=== PATIENT | female | born 1935 | race Caucasian/White ===

== ENCOUNTER 2019-03-02 07:10 | Inpatient (IN) ==
--- NOTE | 2019-02-04 15:41 | PAT Medication Instructions ---
Medication Instructions Date of Service February 04, 2019 Home Medications amlodipine 5 mg PO QDL 08/05/18 [History Confirmed 02/02/19] atenolol 25 mg PO HS 08/05/18 [History Confirmed 02/02/19] cholecalciferol (vitamin D3) [Vitamin D3] 2 cap PO QAM 08/05/18 [History Confirmed 02/02/19] levothyroxine 100 mcg PO QAM 08/05/18 [History Confirmed 02/02/19] multivitamin 1 cap PO QAM 08/05/18 [History Confirmed 02/02/19] omeprazole 20 mg PO QAM PRN 08/05/18 [History Confirmed 02/02/19] warfarin 5 mg PO DAILY 08/05/18 [History Confirmed 02/02/19] gabapentin 600 mg PO BID 02/02/19 [History Confirmed 02/02/19] ASK your prescriber and surgeon warfarin 5 mg PO DAILY 08/05/18 [History Confirmed 02/02/19] DO NOT take the morning of surgery cholecalciferol (vitamin D3) [Vitamin D3] 2 cap PO QAM 08/05/18 [History Confirmed 02/02/19] multivitamin 1 cap PO QAM 08/05/18 [History Confirmed 02/02/19] Take morning of surgery With a small sip of water, OTHERWISE NOTHING TO EAT OR DRINK AFTER MIDNIGHT: amlodipine 5 mg PO QDL 08/05/18 [History Confirmed 02/02/19] levothyroxine 100 mcg PO QAM 08/05/18 [History Confirmed 02/02/19] omeprazole 20 mg PO QAM PRN (if needed) gabapentin 600 mg PO BID 02/02/19 [History Confirmed 02/02/19] Take evening before surgery atenolol 25 mg PO HS 08/05/18 [History Confirmed 02/02/19] gabapentin 600 mg PO BID 02/02/19 [History Confirmed 02/02/19] Other Notes If you have any questions please call us at [phone] or [phone] or [phone] or [phone]
--- NOTE | 2019-02-05 09:41 | Anesthesiology Consultation ---
Date of Service February 05, 2019 Assessment & Plan (1) Encounter for pre-operative examination: - Awaiting review preop testing (labs, CXR). - Cardiology: 01/30/19: "may proceed with surgery as planned, cardiac risk low, RCRI score less than 0.5%." Awaiting response from cardiology (Magen Curtis, JUMA/VALENTIN) regarding pacer information to determine if pacer rep needed for surgery. - Check coags AM DOS Chart Review Chart Review: Patient seen in Pre Admission Testing Teaching & Discussion Pre-Anesthesia Teaching/Discussion Notes: Instructed NPO after midnight before surgery,except medications with 15 cc of water. Medication instructions provided according to the PAT guidelines. History Surgery Operation Date: 03/02/19 07:30 Proposed Procedures p L4-L5, L5-S1 Laminectomy and Fusion - Luis Ramirez DO Height/Weight Height: 5 ft 1 in Weight: 62.9 kg Allergies Allergy/AdvReac Type Severity Reaction Status Date / Time apixaban [From Eliquis] Allergy hives Verified 02/05/19 10:15 rivaroxaban [From Xarelto] AdvReac Severe flu-like Verified 02/05/19 10:15 symptoms alendronate sodium AdvReac Unknown N/V Verified 02/05/19 10:15 Vgutlwf-Bfs-Dry Reductase AdvReac Unknown muscle Verified 02/05/19 10:15 Inhibitor deterioration Medications Home Medications Medication Instructions Recorded Confirmed Last Taken amlodipine 5 mg PO QDL 08/05/18 02/02/19 08/11/18 atenolol 25 mg PO HS 08/05/18 02/02/19 08/11/18 22:00 cholecalciferol (vitamin D3) 2 cap PO QAM 08/05/18 02/02/19 08/10/18 [Vitamin D3] levothyroxine 100 mcg PO QAM 08/05/18 02/02/19 08/12/18 06:30 multivitamin 1 cap PO QAM 08/05/18 02/02/19 Unknown omeprazole 20 mg PO QAM PRN 08/05/18 02/02/19 Unknown warfarin 5 mg PO DAILY 08/05/18 02/02/19 08/06/18 gabapentin 600 mg PO BID 02/02/19 02/02/19 Unknown Past Medical History Medical History Atrial fibrillation Chronic back pain GERD (gastroesophageal reflux disease) controlled History of basal cell carcinoma s/p excision (face) Hypertension Hypothyroidism 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) Spinal stenosis Exercise / Class Metabolic Activity III < 4 Walking/Shop/Light housework Past Surgical History Surgical History History of appendectomy History of arthroscopy BOTH KNEE History of bunionectomy of both great toes History of cataract surgery B/L History of esophagogastroduodenoscopy (EGD) + dilation History of gastric surgery ?esophageal sphincter repair History of hysterectomy TOTAL History of laparoscopy extensive abdominal surgery to repair esophagus (?esophageal sphincter) 1993 History of tonsillectomy Pacemaker Past Anesthesia History No Hx of Anesthesia Complications and No Family Hx of Anesthesia Complications History of PONV No Hx of PONV and No Hx of Motion Sickness Social History Smoking Status: Former smoker tobacco type: cigarettes Do You Dip or Chew Tobacco: No Smoking End Date: Quit 1982 Hx Alcohol Use: No Hx Substance Use: No substance use type: does not use Review of Systems Reflux controlled. Patient denies chest pain, shortness of breath, cough, wheezing, palpitations. Physical Exam Vital Signs VITALS BP 152/75 P 59 TEMP 97.6 SP02 98%RA RESP 16 PHYSICAL Full neck and c-spine range of motion. Full TMJ range of motion. TMD 3 finger breaths Mallampati Score 3 Dentition: intact, implants on molars Lungs: clear throughout to auscultation Cardiac: regular rate and rhythm, no murmurs noted Spine: normal Carotid arteries: negative bruit Extremities: no edema Testing Electrocardiogram Date: 01/30/19 Atrial paced rhythm at 60bpm. Echocardiogram Date: 01/03/16 LVEF 55-60%. Mild AR. Moderate AV sclerosis. Technically difficult study. Grade I DD. Other Testing Pacer check: 01/30/19 (report in cardiology office visit note): [employer]. NA: 6 years estimated longevity. [place] 5.7% longest AF event over 40 hours in September, last AF event 01/10/19. Pacemaker mode/rate: AAI<=>DDD 60 - 120 bpm. No pacer dependence noted. "Normal pacemaker evaluation.. PAF.. Adequate pacing and sensing thresholds"
--- NOTE | 2019-02-05 10:16 | XRay Report ---
XR chest Pre-admission PA/Lat CLINICAL HISTORY: Preoperative evaluation. COMPARISON STUDY: No previous studies for comparison. FINDINGS: Lung volumes are normal. Lungs are clear. There is no pneumothorax or pleural effusion. Car diac size is normal. Mediastinal contours are normal. There is no evidence for pulmonary edema. Dual- lead left subclavian pacemaker is in place. There is slight blunting of the left costophrenic angle a nd slight elevation of the left hemidiaphragm. IMPRESSION: No acute cardiopulmonary findings. Electronically signed by: Ike Yadav M.D. 02/05/2019 10:14 AM
[2019-02-05 10:55] LABS: Basophils # (auto) 0.02 K/uL (0-0.2); Basophils % (auto) 0.3 %; Eosinophils % (auto) 1.7 %; Hematocrit (blood only) 37.4 % (37-47); Hemoglobin 12.6 g/dL (12.0-16.0); Immature Granulocytes # (auto) 0.01 K/uL (0.00-0.02); Immature Granulocytes % (auto) 0.2 %; Lymphocytes % (auto) 23.9 %; Mean Corpuscular Hemoglobin 31.5 pg (25-34); Mean Corpuscular Hgb Conc 33.7 g/dL (32-36); Mean Corpuscular Volume 93.5 fL (80-100); Mean Platelet Volume 10.3 fL (7.4-10.4); Monocytes # (auto) 0.43 K/uL (0.11-0.59); Monocytes % (auto) 7.3 %; Neutrophils # (auto) 3.91 K/uL (1.4-6.5); Neutrophils % (auto) 66.6 %; Platelet Count 283 K/uL (130-400); RDW Coefficient of Variation 13.5 % (11.5-14.5); RDW Standard Deviation 46.3 fL (36.4-46.3); White Blood Count 5.87 K/uL (4.8-10.8)
[2019-02-05 11:11] LABS: INR 1.5 (0.9-1.1); Partial Thromboplastin Ratio 1.4; Partial Thromboplastin Time 36.7 Seconds (21.0-31.0); Prothrombin Time 15.4 Seconds (9.0-12.0)
[2019-02-05 11:12] LABS: BUN Creatinine Ratio 15.4 (10-20); Creatinine Clr Calc Pharmacy 40.1 ml/min; Est GFR (African American) 67.2; Potassium 4.4 mmol/L (3.5-5.1)
--- NOTE | 2019-02-27 15:28 | History and Physical Report ---
DATE OF ADMISSION: 03/02/2019 CHIEF COMPLAINT: Back pain, lower extremity difficulty, inability to ambulate. HISTORY OF PRESENT ILLNESS: Nimisha is delightful. She is miserable, poorly functional, difficulty standing and walking. She has severe stenosis of the spine and a spondylolisthesis at L4-L5 and L5-S1. She is here for elective surgery on 03/02/2019. PAST MEDICAL HISTORY: Positive for heart disease, thyroid disease, high cholesterol. PAST SURGICAL HISTORY: Hysterectomy, cataracts, bunion, pacemaker. ALLERGIES: STATINS. SOCIAL HISTORY: She is . No alcohol, tobacco. REVIEW OF SYSTEMS: No fevers, sweats, chills. Ear, nose and throat negative. Denies chest pain. Does have some heart beat changes. No asthma, wheezing. No shortness of breath. No nausea, vomiting, bowel and bladder incontinence. PHYSICAL EXAMINATION: GENERAL: She is 5 feet 2 inches, 140. VITAL SIGNS: Blood pressure 130/80, pulse 80. HEENT: Pupils react to light and accommodation. Ear, nose and throat clear. CARDIAC: Normal S1, S2, no S3. LUNGS: Clear to auscultation. No rales, rhonchi, wheezing. ABDOMEN: Soft, nontender, bowel sounds present. NEUROLOGIC: She has weakness with dorsiflexion and plantarflexion, inability to stand, inability to ambulate. PLAN: Includes a laminectomy and fusion, L4-S1 lumbar spine.
[~2019-03-02 07:10] MED LIST: ACETAMINOPHEN 1,000 MG/100 ML VIAL IV SCH; ACETAMINOPHEN 1000 MG/100 ML IV IV SCH; CEFAZOLIN 2000MG 2,000 MG/15 ML SYR IV SCH; LR 15ML/HR IV SCH; SODIUM CHLORIDE 0.9% 1,000 ML IV SCH
[2019-03-02 08:20] LABS: INR 1.1 (0.9-1.1); Partial Thromboplastin Ratio 1.1; Partial Thromboplastin Time 28.9 Seconds (21.0-31.0); Prothrombin Time 10.8 Seconds (9.0-12.0)
[2019-03-02] MEDS ORDERED: ONDANSETRON INJ 2 MG/ML 2 ML VIAL ONE (08:30)
[2019-03-02] MEDS ORDERED: PROPOFOL IV EMULSION 10 MG/ML 20 ML VIAL IV ONE (08:30)
[2019-03-02] MEDS ORDERED: LIDOCAINE HCL 2% 2 ML VIAL/AMP(20MG/ML) INFIL ONE (08:30)
[2019-03-02] MEDS ORDERED: ePHEDrine sulfate 50 MG/ML SYR ONE (08:30)
[2019-03-02] MEDS ORDERED: MIDAZOLAM HCL 1 MG/ML 2ML VIAL ONE (08:30)
[2019-03-02] MEDS ORDERED: LARYING-O-JET KIT (LTA) ONE (08:30)
[2019-03-02] MEDS ORDERED: DEXAMETHASONE SOD INJ 4 MG/ML VIAL ONE (08:30)
[2019-03-02] MEDS ORDERED: NEOSTIGMINE METHYLSULFATE 5 MG/5 ML SYR ONE (08:30)
[2019-03-02] MEDS ORDERED: ROCURONIUM BROMIDE 10 MG/ML 5 ML VIAL ONE (08:30)
[2019-03-02] MEDS ORDERED: GLYCOPYRROLATE 0.2 MG/ML VIAL ONE (08:30)
[2019-03-02] MEDS ORDERED: fentaNYL citrate 100 MCG/2 ML VIAL ONE (08:31)
--- NOTE | 2019-03-02 09:51 | History & Physical Bridge Note ---
Date of Service March 02, 2019 History & Physical Bridge Note I have examined the patient, reviewed the History & Physical and in the interval since the performance of the History & Physical I have noted the following changes of clinical significance: no changes noted
[2019-03-02] MEDS ORDERED: EPINEPHrine INJ 1 MG/ML AMP ONE (09:53)
[2019-03-02] MEDS ORDERED: VANCOMYCIN HCL 1000MG/20ML VIAL ONE (09:53)
[2019-03-02] MEDS ORDERED: GELATIN SPONGE SZ 100 ONE (09:53)
[2019-03-02] MEDS ORDERED: BACITRACIN INJ 50,000 UNIT VIAL ONE (09:53)
[2019-03-02] MEDS ORDERED: THROMBIN FOR SOLN 20000 UNIT KIT ONE (09:53)
[2019-03-02] MEDS ORDERED: BUPIVACAINE 0.5 % 5 MG/1 ML MPF 30ML VIAL ONE (09:53)
[2019-03-02] MEDS ORDERED: HYDROmorphone INJ 2 MG/ML SYR/VIAL ONE (10:48)
--- NOTE | 2019-03-02 11:52 | Fluoroscopy Report ---
FL spine 1V any level CLINICAL HISTORY: L4-S1 LAMINECTOMY AND FUSION COMPARISON STUDY: Lumbar spine CT January 20, 2019. FLUOROSCOPY TIME: 5 seconds. FLUOROSCOPIC IMAGES: 1 FINDINGS: Single lateral fluoroscopic image demonstrates pedicle screws at the L4, L5 and S1 levels. IMPRESSION: Fluoroscopic image demonstrating pedicle screws at the L4, L5 and S1 levels. Electronically signed by: Ike Yadav M.D. 03/02/2019 11:51 AM
--- NOTE | 2019-03-02 12:02 | Post Operative Brief Note ---
PG Immediate Post Op with CF Date of Surgery March 02, 2019 Pre & Post Diagnosis Operation Date: 03/02/19 09:50 Pre-Op Diagnosis: Spinal Stenosis Post-Op Diagnosis: Spinal Stenosis I identified the patient and participated in the time-out.: Yes Procedure Operation Date: 03/02/19 09:50 Actual Procedures p L4-L5, L5-S1 Laminectomy and Fusion(Not Applicable) - Luis aRmirez DO Surgeon Luis Ramirez DO Mass Spec minor Estimated Blood Loss 100 Findings Consistent with Post-Op Diagnosis Specimens Specimen Description: none per surgeon Drains Andrews Catheter (16 indonesian 10ml balloon) and Hemovac Drain Complications none Overlapping Procedure I was immediately available: during the entire case.
--- NOTE | 2019-03-02 12:13 | Operative Report ---
PG Post Operative Report Pre & Post Diagnosis Operation Date: 03/02/19 09:50 Pre-Op Diagnosis: Spinal Stenosis Post-Op Diagnosis: Spinal Stenosis I identified the patient and participated in the time-out.: Yes Procedure Operation Date: 03/02/19 09:50 Actual Procedures p L4-L5, L5-S1 Laminectomy and Fusion(Not Applicable) - Luis Ramirez DO Surgeon Luis Ramirez DO Electrocardiographic Technician minor Estimated Blood Loss 100 Findings Consistent with Post-Op Diagnosis Specimens 0 Drains No specimens Complications none Disposition Accompanied Patient To Recovery: Yes Indications Inability to stand walk and ambulate distances. Description of Procedure Patient was taken to the operating room a general intubated anesthetic provided the patient Andrews catheter administered. Placed prone on the Julian table. We prepped her Rescriptor draped your sterile took a timeout. Made a skin incision from L3 down to the sacrum dissecting the soft tissue out over the facet joints transverse processes sacrum putting in a deep self-retaining retractor We then decompress the neural elements starting at L5-S1 L4-5 took off the lamina 5145 a true 2 level laminectomy. We did partial facetectomy decompressing each and every nerve root in the vicinity. We then instrumented the spine she had a grade 1 spondylolisthesis of fell she was unstable she had significant osteoporotic bone. There is also very poor facet joints I felt she was a moderate set up for significant instability and iatrogenic instability. We safely got pedicle screws into 4 5 and sacrum on the left and 4 5 sacrum on the right. We used anatomic landmarks we used C-arm guidance I felt the positioning was excellent. We then put in the clare reduce the spinal thesis tightened down the bolts. We irrigated thoroughly with approximately 500 cc of fluid bone grafted out of the transverse processes and sacral ala with a combination of morselized autograft and demineralized bone matrix. Then began our closure room vancomycin powder with 1 Vicryl suture. 201 subcuticular layer staple gun and skin sterile dressing applied the drain was activated patient returned to recovery room satisfactory stable condition No complications Implants used Sample6 Bone graft combination of morselized autograft and demineralized bone matrix I attest to the content of the Intraoperative Record and any orders documented therein. Any exceptions are noted below.
[2019-03-02] MEDS ORDERED: fentaNYL citrate 100 MCG/2 ML VIAL IV PRN (12:32)
[2019-03-02] MEDS ORDERED: ATROPINE SULFATE 0.1 MG/ML 10ML SYR IV PRN (12:32)
[2019-03-02] MEDS ORDERED: ePHEDrine sulfate 50 MG/ML AMP IV PRN (12:32)
[2019-03-02] MEDS ORDERED: HYDROmorphone INJ 2 MG/ML SYR/VIAL IV PRN (12:32)
[2019-03-02] MEDS ORDERED: ONDANSETRON INJ 2 MG/ML 2 ML VIAL IV PRN ×2 (12:32→13:16)
--- NOTE | 2019-03-02 12:46 | Anesthesiology Progress Note ---
Date of Service March 02, 2019 Anesthesia Post Procedure Vital Signs Vital Signs: Temp Pulse Pulse Resp BP Pulse Ox 03/02/19 12:35 36.7 C 63 15 135/60 100 03/02/19 12:25 66 16 147/60 H 100 03/02/19 12:15 75 15 154/61 H 100 03/02/19 12:07 36.6 C 84 14 150/66 H 100 03/02/19 08:09 36.4 C L 60 20 139/67 99 Pain Intensity Back: Pain Intensity: 4 Transfer of Care Handoff Completed per policy Notes Mental Status: alert / awake / arousable Patient Amnestic to Procedure: Yes Nausea / Vomiting: adequately controlled Pain: adequately controlled Airway Patency, RR, SpO2: stable & adequate BP & HR: stable & adequate Hydration State: stable & adequate Anesthetic Complications: no major complications apparent
[2019-03-02] MEDS ORDERED: DO NOT ADMINISTER FLU VACCINE PRN (13:04)
[2019-03-02] MEDS ORDERED: DO NOT ADMINISTER PNEUMOCOCCAL VACCINE PRN (13:04)
[2019-03-02] MEDS ORDERED: MAGNESIUM HYDROXIDE SUSP 30 ML UDC PO PRN (13:04)
[2019-03-02] MEDS ORDERED: PROMETHAZINE HCL 12.5 MG in SODIUM CHLORIDE 0.9% 50 ML IV PRN (13:04)
[2019-03-02] MEDS ORDERED: SOD PHOSPHATE/SOD BIPHOSPHATE ENEMA 132 ML BTL PR PRN (13:04)
[2019-03-02] MEDS ORDERED: bisacodyL 10 MG SUPP PR PRN (13:04)
[2019-03-02] MEDS ORDERED: ALUMINUM/MAGNESIUM SUSP 30 ML UDC PO PRN (13:04)
[2019-03-02] MEDS ORDERED: ONDANSETRON 4 MG OD TAB PO PRN (13:04)
[2019-03-02] MEDS ORDERED: HYDROmorphone INJ 0.5 MG/0.5 ML SYR IV PRN (13:04)
[2019-03-02] MEDS ORDERED: OXYCODONE HCL IR 5 MG TAB (IMMEDIATE RELEASE) PO PRN (13:04)
[2019-03-02] MEDS ORDERED: NALOXONE HCL 0.4 MG/1 ML VIAL/CARP IV PRN (13:04)
[2019-03-02] MEDS ORDERED: ACETAMINOPHEN 1,000 MG/100 ML VIAL IV PRN (13:04)
[2019-03-02] MEDS ORDERED: PANTOprazole 40 MG TAB PO PRN (13:10)
[2019-03-02] MEDS: LACTATED RINGER'S 1,000 ML IV SCH (13:50)
[2019-03-02] MEDS: KETOROLAC TROMETHAMINE 15 MG/ML VIAL IV SCH ×2 (13:52→19:44)
[2019-03-02] MEDS ORDERED: WARFARIN SOD 7.5 MG TAB PO SCH (16:00)
--- NOTE | 2019-03-02 16:56 | Hospitalist Consultation ---
Date of Consultation March 02, 2019 Assessment & Plan (1) Hypothyroidism: Continue Synthroid, had normal hemodynamic response is reassuring TSH can be checked by primary care physician as an outpatient (2) Hypertension: Slightly uncontrolled after the surgery, restart atenolol and amlodipine Continue to monitor blood pressure If goes above 170 systolic we will add as needed hydralazine IV (3) GERD (gastroesophageal reflux disease): Appears to be stable continue home meds (4) Chronic back pain: Status post laminectomy/fusion of [id number] Tolerated procedure well (5) Atrial fibrillation: Currently rate controlled, Coumadin to be started as per primary team History of Present Illness Reason for Consultation: For medical management Requesting Physician: Attending Physician: Luis Ramirez, History of Present Illness 83 years old female with past medical history of atrial fibrillation, and Coumadin, essential hypertension, hypothyroidism and chronic lower back pain. Patient also has a pacemaker which she was not sure for what. Patient reported having chronic lower back pain that over the last 6 weeks got progressively worse. She failed outpatient conservative management and was admitted to the hospital for an elective L4-L5, L5-S1 laminectomy and fusion,. Procedure went uneventful, patient tolerated the procedure well. Patient reported that she stopped her Coumadin 5 days ago. Patient has an echo in our record that was done on December 2015 showed ejection fraction of 60% moderate aortic sclerosis with mild aortic regurgitation Allergies Allergy/AdvReac Type Severity Reaction Status Date / Time apixaban [From Eliquis] Allergy hives Verified 03/02/19 08:05 rivaroxaban [From Xarelto] AdvReac Severe flu-like Verified 03/02/19 08:05 symptoms alendronate sodium AdvReac Unknown N/V Verified 03/02/19 08:05 Sdgtunn-Jnq-Hdf Reductase AdvReac Unknown muscle Verified 03/02/19 08:05 Inhibitor deterioration Home Medications Home Medications Medication Instructions Recorded Confirmed Type amlodipine [Norvasc] 5 mg PO DAILY 08/05/18 03/02/19 History atenolol [Tenormin] 25 mg PO HS 08/05/18 03/02/19 History cholecalciferol (vitamin D3) 2 cap PO QAM 08/05/18 03/02/19 History [Vitamin D3] levothyroxine 100 mcg PO QAM 08/05/18 03/02/19 History multivitamin 1 cap PO QAM 08/05/18 03/02/19 History omeprazole 20 mg PO QAM PRN 08/05/18 03/02/19 History warfarin [Coumadin] 5 mg PO DAILY 08/05/18 03/02/19 History gabapentin 600 mg PO BID 02/02/19 03/02/19 History Patient History Medical History Atrial fibrillation Chronic back pain GERD (gastroesophageal reflux disease) controlled History of basal cell carcinoma s/p excision (face) Hypertension Hypothyroidism Pacemaker implanted 2014 (2/ bradycardia) Spinal stenosis Surgical History History of appendectomy History of arthroscopy BOTH KNEE History of bunionectomy of both great toes History of cataract surgery B/L History of esophagogastroduodenoscopy (EGD) + dilation History of gastric surgery ?esophageal sphincter repair History of hysterectomy TOTAL History of laparoscopy extensive abdominal surgery to repair esophagus (?esophageal sphincter) 1993 History of tonsillectomy Pacemaker Social History Preferred Language: Micronesian Communication Ability: Effective Pipe Stripper Required: No Beliefs That Will Affect Care: None Current Living Situation: Alone Feels Safe at Home: Yes Smoking Status: Former smoker Tobacco Type: cigarettes ; Do You Dip or Chew Tobacco: No ; Smoking End Date: Quit 1982 ; Second Hand Exposure: No ; Hx Alcohol Use: No Hx Substance Use: No Review of Systems Review of Systems: Review of system Constitutional: No fever / no chills / no sweats / no weakness / no fatigue Eyes: no blurring of vision / no eye pain / no discharge / no redness ENT: no hearing loss / no epistaxis /no swallowing problems Respiratory: no cough / no wheezing / no SOB / no hemoptysis Cardiovascular: no Chest pain / no lower extremity edema / no palpitation Abdomen: no pain / no nausea / no vomiting / no constipation Musculoskeletal: no joint pain / no muscle pain / no joint swelling Genitourinary: no dysuria / no incontinence / no urinary retention Neurologic: no focal weakness / no numbness/tingling / no ataxia Psychiatric: no depression symptoms / no anxiety / no insomnia Endocrine: no excessive thirst / no excessive urination Hematologic: no abnormal bleeding / no bruising / no LN swelling Skin: No rash / no pallor Physical Exam Physical Exam: Physical examination General patient appears to be comfortable, not in acute distress HEENT: Atraumatic , normocephalic /no jaundice /no pallor /anicteric /no dry mucous membrane /normal external ear inspection Neck: Supple /no swelling /central trach Heart: S1/S2 normal/regular rate and rhythm/no gallop /no rub /no murmur Lungs: Clear to auscultation bilaterally/normal chest with expansion/no rhonchi/no rales/no wheezing/no use of accessory muscles of respiration Abdomen: Soft/nontender/no guarding/no rebound/no organomegaly/no pulsatile mass Musculoskeletal: No swelling/no edema/no tenderness/normal range of motion, sensation intact and toes in both feet, patient can move both toes in both feet Neuro exam: Awake alert oriented 3/cranial nerves II through XII appear to be intact/sensation intact/moves all extremities/no abnormal movements Psychiatric evaluation: No depressed mood/normal affect Skin: No rash on exposed skin area/no erythema Extremity: Normal pulse/no pitting edema/no clubbing or cyanosis Endocrine/lymphatic: No obvious lymphadenopathy /no lymphedema Results & Data Vital Signs (Past 12 Hours) Vital Signs Temp Pulse Pulse Resp BP Pulse Ox 03/02/19 16:00 79 18 152/51 H 100 03/02/19 15:18 36.4 C L 60 18 136/70 100 03/02/19 13:54 36.3 C L 60 18 129/65 97 03/02/19 13:25 60 16 139/65 95 03/02/19 13:00 36.4 C L 60 18 150/64 H 99 03/02/19 12:45 36.7 C 60 15 125/72 97 03/02/19 12:35 36.7 C 63 15 135/60 100 03/02/19 12:25 66 16 147/60 H 100 03/02/19 12:15 75 15 154/61 H 100 03/02/19 12:07 36.6 C 84 14 150/66 H 100 03/02/19 08:09 36.4 C L 60 20 139/67 99 PG Care Time/CCT Total # of Minutes Spent Total Time Spent with Patient: 35 minutes total time spent is greater than 50% in coordination of care (as documented) at patient's floor/unit and/or counseling patient/family discussion of care with nursing staff
[2019-03-02] MEDS: CEFAZOLIN 2000MG 2,000 MG/15 ML SYR IV SCH (17:58)
[2019-03-02] MEDS: ATENOLOL 25 MG TABLET PO SCH (21:07)
[2019-03-02] MEDS: GABAPENTIN 600 MG TAB PO SCH (21:07)
[2019-03-02] MEDS: DOCUSATE SODIUM/SENNA 50/8.6MG TAB PO SCH (21:08)
[2019-03-03] MEDS: KETOROLAC TROMETHAMINE 15 MG/ML VIAL IV SCH ×2 (02:14→08:21)
[2019-03-03] MEDS: CEFAZOLIN 2000MG 2,000 MG/15 ML SYR IV SCH (02:14)
[2019-03-03] MEDS: LACTATED RINGER'S 1,000 ML IV SCH (02:17)
[2019-03-03 05:20] LABS: Hematocrit (blood only) 28.6 % (37-47); Hemoglobin 9.6 g/dL (12.0-16.0); Mean Corpuscular Hemoglobin 31.5 pg (25-34); Mean Corpuscular Hgb Conc 33.6 g/dL (32-36); Mean Corpuscular Volume 93.8 fL (80-100); Platelet Count 248 K/uL (130-400); RDW Coefficient of Variation 13.3 % (11.5-14.5); RDW Standard Deviation 45.6 fL (36.4-46.3); Red Blood Count 3.05 M/uL (4.2-5.4); White Blood Count 8.99 K/uL (4.8-10.8)
[2019-03-03] MEDS: POLYETHYLENE (MIRALAX) 17 GM PACK PO SCH ×3 (05:40→18:49)
[2019-03-03] MEDS: LEVOTHYROXINE SODIUM 100 MCG TABLET PO SCH (05:40)
[2019-03-03 05:46] LABS: Albumin Level 2.6 gm/dl (3.4-5.0); BUN Creatinine Ratio 16.5 (10-20); Calcium 8.1 mg/dl (8.5-10.1); Creatinine Clr Calc Pharmacy 41.4 ml/min; Est GFR (Non-African American) 59.5; Magnesium 1.9 mg/dl (1.8-2.4); Potassium 4.4 mmol/L (3.5-5.1)
[2019-03-03 05:48] LABS: Albumin Globulin Ratio 0.8 (0.9-2); Bilirubin,Total 0.5 mg/dl (0.2-1); Globulin 3.1 gm/dl (2.5-4.0); Total Protein 5.7 gm/dl (6.4-8.2)
--- NOTE | 2019-03-03 08:19 | Anesthesiology Progress Note ---
Date of Service March 03, 2019 Anesthesia Post Procedure Vital Signs Vital Signs: Temp Pulse Pulse Resp BP Pulse Ox 03/03/19 07:43 36.7 C 58 L 18 129/68 100 03/03/19 04:00 36.8 C 62 16 131/71 97 03/02/19 23:25 36.7 C 75 16 111/61 97 03/02/19 19:10 36.5 C 83 18 151/72 H 97 03/02/19 16:00 79 18 152/51 H 100 03/02/19 15:18 36.4 C L 60 18 136/70 100 03/02/19 13:54 36.3 C L 60 18 129/65 97 03/02/19 13:25 60 16 139/65 95 03/02/19 13:00 36.4 C L 60 18 150/64 H 99 03/02/19 12:45 36.7 C 60 15 125/72 97 03/02/19 12:35 36.7 C 63 15 135/60 100 03/02/19 12:25 66 16 147/60 H 100 03/02/19 12:15 75 15 154/61 H 100 03/02/19 12:07 36.6 C 84 14 150/66 H 100 Notes Mental Status: alert / awake / arousable and participated in evaluation Patient Amnestic to Procedure: Yes Nausea / Vomiting: adequately controlled Pain: adequately controlled Airway Patency, RR, SpO2: stable & adequate BP & HR: stable & adequate Hydration State: stable & adequate Anesthetic Complications: no major complications apparent and Pt Satisfied with anesthetic care
[2019-03-03] MEDS: AMLODIPINE BESYLATE 5 MG TAB PO SCH (08:20)
[2019-03-03] MEDS ORDERED: WARFARIN SOD 5 MG TAB PO SCH ×2 (09:00→16:00)
--- NOTE | 2019-03-03 11:23 | Hospitalist Progress Note ---
Date of Service March 03, 2019 Assessment & Plan (1) Hypothyroidism: Continue Synthroid, had normal hemodynamic response is reassuring TSH can be checked by primary care physician as an outpatient (2) Hypertension: Slightly uncontrolled after the surgery but resolved overnight - continue atenolol and amlodipine (3) GERD (gastroesophageal reflux disease): Appears to be stable continue home ppi (4) Chronic back pain: Status post laminectomy/fusion of [id number] Tolerated procedure well (5) Atrial fibrillation: Currently rate controlled, Coumadin to be started as per primary team (6) Acute blood loss anemia: Hgb 9.6 down from 12.6 Continue to monitor for hypotension and further blood loss Medicine will sign off at this point. Please let us know if you have any further questions or concerns Subjective Ms. Mike is feeling well, tolerable pain at surgical site. Otherwise she has no complaints and is looking forward to hopefully discharging tomorrow. ROS Constitutional: no chills, aches, sweats or fever Respiratory: no sob,cough, sputum, or wheezing Cardiac: no chest pain, palpitations, edema, orthopnea or lightheadedness GI: no abdominal pain, nausea, vomiting, diarrhea or constipation : no dysuria or hesitancy Extremities: no joint pain or weakness Skin: no rash All other systems reviewed and negative Physical Exam Physical Exam: General: no distress Eyes: normal inspection, PERLL Respiratory: chest non tender, clear to auscultation, normal breath sounds, no respiratory distress, no accessory muscle use Cardiac: regular rate and rhythm, no rub or gallop, no murmur, no edema, no jvd GI/: active bowel sounds, no abd pain or tenderness, soft, non distended Extremities: normal range of motion, normal strength, non tender Neuro/Psych: alert and oriented x 3, normal mood and affect Skin: normal color, dry Results & Data Vital Signs (Past 12 Hours) Vital Signs Temp Pulse Resp BP Pulse Ox 03/03/19 07:43 36.7 C 58 L 18 129/68 100 03/03/19 04:00 36.8 C 62 16 131/71 97 03/02/19 23:25 36.7 C 75 16 111/61 97 PG Care Time/CCT Total # of Minutes Spent Total Time Spent with Patient: Total time spent is greater than 50% in coordination of care (as documented) at patient's floor/unit and/or counseling patient:
[2019-03-03] MEDS: GABAPENTIN 600 MG TAB PO SCH ×2 (12:12→20:46)
[2019-03-03] MEDS ORDERED: Nursing to Pharmacy Communication ONE (18:25)
[2019-03-03] MEDS ORDERED: ACETAMINOPHEN 500 MG TAB ONE (20:43)
[2019-03-03] MEDS: DOCUSATE SODIUM/SENNA 50/8.6MG TAB PO SCH (20:44)
[2019-03-03] MEDS: ATENOLOL 25 MG TABLET PO SCH (20:45)
[2019-03-03] MEDS: ACETAMINOPHEN 500 MG TAB PO PRN (20:45)
[2019-03-04] MEDS: LEVOTHYROXINE SODIUM 100 MCG TABLET PO SCH (05:23)
--- NOTE | 2019-03-04 07:28 | Discharge Summary ---
SUBJECTIVE: She is alert, oriented this morning. No chest pain, shortness of breath, no extremity difficulties. No fevers, sweats or chills. OBJECTIVE: VITAL SIGNS: Stable, pulse rate 74, blood pressure 127/70. NEUROLOGIC: Intact. ABDOMEN: Soft, nontender, no referred pain. EXTREMITIES: No edema to the extremities. ASSESSMENT: Status post reconstruction, lumbar spine, doing well, 48 hours postoperatively with no events during her hospital stay. PLAN: She will be discharged home today with home health services. She has prescriptions at home. She has a rolling walker. She has instructions, precautions provided here and from the office. Followup examination approximately 10 days.
[2019-03-04] MEDS: ACETAMINOPHEN 500 MG TAB PO PRN (07:33)
[2019-03-04] MEDS: AMLODIPINE BESYLATE 5 MG TAB PO SCH (07:33)
[2019-03-04] MEDS: GABAPENTIN 600 MG TAB PO SCH (07:34)
== END 2019-03-04 12:00 | disposition home or self-care (01) | DRG 460 ==
LOC: ASU 07:10 → 3E 12:13